=== PATIENT | male | born 1960 | race Caucasian/White ===

== ENCOUNTER → 2019-03-25 | Outpatient (CLI) | payer SELFPAY ==
[~2019-03-25] MED LIST: RANI-633 PO; [UNRECOGNIZED DRUG - CODE] PO
== END | disposition home or self-care (01) ==
LOC: LAB 11:49
PROVIDERS: ATTEND Radiology Diagnostic Radiology
DX: Z82.49 Family history of ischemic heart disease and other diseases of the circulatory system (principal)
CPT/HCPCS: 36415; 82565; 84520

== ENCOUNTER → 2020-05-11 | Outpatient (CLI) | payer OTHER ==
[~2020-05-11] MED LIST changes: -RANI-633 PO; +RANI-645 PO
== END | disposition home or self-care (01) ==
LOC: RAD 08:48
PROVIDERS: ATTEND Radiology Diagnostic Radiology
DX: Z00.00 Encounter for general adult medical examination without abnormal findings (principal)
CPT/HCPCS: 36415; 82565; 84520

== ENCOUNTER → 2020-05-12 | Outpatient (CLI) | payer OTHER ==
[~2020-05-12] VITALS: Ht 185.4 cm; Wt 102.1 kg
[2020-05-12] VITALS (7 sets, daily range): BP systolic 126–156; BP diastolic 69–86
[~2020-05-12] MED LIST changes: +IOHEXOL-350 100 ML BOTTLE ONE; +METOPROLOL TARTRATE 5MG/5ML VIAL IV ONE; +NITROGLYCERIN 0.4MG TABLET SL SL PRN; +NITROGLYCERIN SPRAY/4.9GM CAN TL SCH
== END | disposition home or self-care (01) ==
LOC: RAD 09:22
PROVIDERS: ATTEND Radiology Diagnostic Radiology
DX: Z13.6 Encounter for screening for cardiovascular disorders (principal)
CPT/HCPCS: 75571; J3490; Q9967; Z7610